=== PATIENT | female | born 1930 | race African-American/Black ===

== ENCOUNTER 2017-05-07 10:56 | Outpatient (RCR) | payer OTHER ==
[~2017-05-07 10:56] MED LIST: AMBIEN10 MG ORAL; AMBIEN10 MG PO; ATORVASTATIN CA20 MG ORAL; BENAZEPRIL HCL40 MG PO; CIPROFLOXACIN500 M2 ORAL; COLACE250 MG ORAL; DIAZEPAM10 MG ORAL; DILAUDID2 MG ORAL; DOCUSATE SODIU100 MG ORAL; FLAGYL500 MG ORAL; HYDROCHLOROTHIA25 MG PO; KLONOPIN0.5 MG PO; LIDOCAINE PATCH 5%; LIDODERM700 MG TP; METOCLOPRA10 MG/10 M ORAL; MILK OF MA400 MG/51 ORAL; MIRTAZAPINE PO; MIRTAZAPINE15 M3 ORAL; MIRTAZAPINE15 MG PO; NORCO 10/3251 EA ORAL; NORCO 7.5/3251 EA ORAL; PREDNISONE20 MG ORAL; PROMETHAZINE-C118 M1 ORAL; REGLAN10 MG ORAL; SEN-O-TAB8.6 MG ORAL; VALIUM10 MG PO; VICODIN ES 7.51 EACH PO; ZOFRAN ODT4 MG ORAL; ZOLPIDEM TARTRA10 MG ORAL; [UNRECOGNIZED DRUG - OTHER]
== END 2017-06-04 | disposition home or self-care (01) ==
LOC: PTY 10:56
PROVIDERS: ATTEND Internal Medicine
DX: R29.898 Other symptoms and signs involving the musculoskeletal system (principal)